=== PATIENT | male | born 1970 | race African-American/Black ===

== ENCOUNTER 2017-05-28 00:15 | Observation (INO) ==
[2017-05-28] MEDS ORDERED: ONDANSETRON 4 MG/2 ML VIAL IV STA (00:31)
[2017-05-28] MEDS ORDERED: MORPHINE 2 MG/1 ML SYRINGE IV STA (00:31)
[2017-05-28] MEDS ORDERED: hydrALAZINE 20 MG/1 ML VIAL IV STA (00:31)
[2017-05-28] MEDS ORDERED: ASPIRIN 325 MG TABLET PO STA (00:31)
[2017-05-28] MEDS ORDERED: NITROGLYCERIN 2% OINT 1 INCH/GM PACK TOP STA (00:31)
[2017-05-28] MEDS ORDERED: hydrALAZINE 20 MG/1 ML VIAL ONE (00:42)
[2017-05-28] MEDS ORDERED: ASPIRIN 325 MG TABLET ONE (00:42)
[2017-05-28] MEDS ORDERED: NITROGLYCERIN 2% OINT 1 INCH/GM PACK TOP ONE (00:42)
[2017-05-28] MEDS ORDERED: ONDANSETRON 4 MG/2 ML VIAL ONE (00:42)
[2017-05-28] MEDS ORDERED: MORPHINE 2 MG/1 ML SYRINGE ONE (00:42)
[2017-05-28 00:47] LABS: Basophils % 0.3 % (0.0-0.8); Eosinophils # 0.3 10*3/uL (0.0-0.87); Eosinophils % 5.2 % (0.00-10.9); Hematocrit 39.5 VOL% (42.0-52.0); Hemoglobin 12.8 GM/DL (14.0-18.0); Immature Granulocytes % 0.3 %; Immature Granulocytes Absolute 0.02 #; Lymphocytes # 1.9 10*3/uL (1.4-4.0); Lymphocytes % 32.4 % (21.2-54.2); Mean Corpuscular HGB Conc 32.4 GM/DL (32-36); Mean Corpuscular Hemoglobin 29 PG (27-34); Mean Corpuscular Volume 90.4 FL (87-102); Mean Platelet Volume 10.7 FL (9.6-12.0); Monocytes # 0.6 10*3/uL (0.11-0.8); Monocytes % 9.9 % (1.7-12.7); Neutrophils % 51.9 % (38.7-73.9); Platelet Count 180 T/CUMM (130-400); Red Blood Count 4.37 MC/CUMM (3.8-5.5); Red Cell Distribution Width 13.5 % (9.3-17.3); White Blood Count 5.8 T/CUMM (4-12)
--- NOTE | 2017-05-28 00:53 | Emergency Department Note ---
IAlyssia Brittany, am scribing for, and in the presence of, Arsenio Benavides MD 00:35. Kennedy Lafleur Charles R, MD, personally performed the services described in this documentation, ascribed by Michelle Cade in my presence, and it is both accurate and complete . Arrival - Arrival Chief Complaint: Chest Pain Stated Complaint: chest pains ED Nursing Triage Note: Pt to triage with c/o chest "fluttering". Pt states it started 1 hr [employer]. Pt states he does feel some tingling on his left arm. Denies any pass cardiac history. Pt BP in triage 187/120, pt states he is compliant with his meds. Mode of Arrival: Ambulatory Limitations: No Limitations Source: Patient Time Seen by Provider: 05/28/17 00:27 - History of Present Illness HPI Narrative: This is a 47 y/o black male, who presents to the ED with c/o CP which started 1 hour [employer]. He describes the CP as "fluttering around my heart." Per pt, "I'm not having chest pain but there is "fluttering around my heart." He states he normally takes his BP meds but he has been out of them. Pt has no other complaints/pain in the ED at this time. Pt has a PMhx of HTN. Pt denies a surgical Hx. Pt denies a family medical Hx. Pt denies the use of tobacco or street drugs, but notes he drinks occasionally. Onset (ago): hour(s) (Started 1 hour ago) Consistency: constant Severity: moderate Allergies/Adverse Reactions: Allergies Allergy/AdvReac Type Severity Reaction Status Date / Time No Known Allergies Allergy Verified 05/28/17 00:24 Home Medications: Home Medications Medication Instructions Recorded Confirmed Type Lisinopril/Hctz 20-25 [Prinzide 1 tablet PO DAILY 03/31/16 03/31/16 History 20-25] HYDROcodone/ACETAMIN 7.5-325 1 tablet PO Q6H PRN #20 tablet 07/04/16 Rx [[place] 7.5-325] Carvedilol [Coreg] 12.5 mg PO BID 05/28/17 05/28/17 History Cyclobenzaprine [Flexeril] 10 mg PO TID PRN 05/28/17 05/28/17 History Review of System - Review of System 12 point system: reviewed and no additional remarkable complaints except as stated - Review of System Cardiovascular: Present: chest pain Medical,Surgical,& Family Hx - Medical History Cardio: History of: Hypertension - Social History Smoking Status: Never smoker Frequency of Alcohol Use: Occasionally Type of Drug Use: None Exam Vital Signs: Vital Signs Temperature 98.5 F 05/28/17 00:20 Pulse Rate 66 05/28/17 00:20 Respiratory Rate 18 05/28/17 01:03 Blood Pressure 187/120 05/28/17 00:20 O2 Sat by Pulse Oximetry 98 05/28/17 01:03 - General General appearance: alert, in no apparent distress - Head Head exam: Present: normal inspection - Eye Eye exam: Present: PERRL, EOMI. Absent: nystagmus, miosis, mydriasis - ENT ENT exam: Present: mucous membranes moist - Neck Neck exam: Present: full ROM, trachea midline. Absent: tenderness - Chest Chest inspection: Present: symmetric chest wall rise. Absent: tenderness - Respiratory Respiratory exam: Present: rales. Absent: respiratory distress - Cardiovascular Cardiovascular exam: Present: regular rate, normal rhythm, normal heart sounds - Abdominal Exam Abdominal exam: Present: soft, normal bowel sounds. Absent: tenderness - Rectal Exam Rectal exam: Present: deferred - Extremities Exam Extremities exam: Present: normal capillary refill. Absent: tenderness, pedal edema - Back Exam Back exam: Present: full ROM. Absent: tenderness, muscle spasm, rashes - Neurological Exam Neurological exam: Present: alert, oriented X3, CN II-XII intact. Absent: motor sensory deficit - Psychiatric Psychiatric exam: Present: normal affect, normal mood. Absent: depressed, agitated, anxious, flat affect, manic - Skin Skin exam: Present: warm, dry, intact, normal color. Absent: rash, cyanosis, diaphoresis, erythema Course - Consultations Consultation #1: Hospitalist will admit patient Time: 01:30 Results - Labs CBC & BMP: 05/28/17 00:34 05/28/17 00:34 Disposition Clinical Impression: Atypical chest pain, Hypertensive urgency Case discussed with: patient, patient's family Disposition: Still a Patient Condition: Stable Time of Disposition: 01:30
[2017-05-28 01:06] LABS: PT Patient Result 10.2 SECS
[2017-05-28 01:09] LABS: Albumin 3.3 G/DL (3.4-5.0); Bilirubin,Total 0.4 MG/DL (0.2-1.0); Calcium 8.9 MG/DL (8.5-10.1); Magnesium 2.1 MG/DL (1.8-2.4); Osmolality,Calculated 276.7 MOS/KG (273-304); Potassium 3.7 MMOL/L (3.5-5.1); Total Protein 7.5 G/DL (6.4-8.3)
--- NOTE | 2017-05-28 02:42 | Hospitalist History & Physical ---
Assessment and Plan - Time spent with patient Time spent with patient: Greater than 30 minutes (1) Heart palpitations Status: Acute Assessment and plan: Admit to hospitalist services. Telemetry. Consult cardiology. Initial troponin in the ED was less than 0.015. Follow serial troponins. Initial EKG in the ED showed normal sinus rhythm. Follow serial EKGs. CT head without contrast. Obtain echo. Neuro checks every 4 hours. Strict I/Os. O2 per unit protocol. Start ASA 325 mg PO daily. BNP pending. A1c, lipid panel, magnesium, TSH, CBC, CMP in a.m. Current Visit: Yes (2) Hypertensive urgency Status: Acute Assessment and plan: BP was initially 187/120 in ED. It lowered to 140s/90s after Nitro and hydralazine. Continue home BP medications. Monitor. Current Visit: Yes (3) Anemia Status: Chronic Assessment and plan: Mild, normocytic anemia. Slightly lower than baseline. Stable; asymptomatic. Repeat CBC in a.m. Monitor. Current Visit: Yes (4) DVT prophylaxis Status: Acute Assessment and plan: Lovenox 40 mg SQ daily. Current Visit: Yes History of Present Illness Chief complaint: Palpitations; Hypertension History of present illness: Mr. Bates is a 47 year old male with a past medical history of hypertension who presented to the ED today with complaints of intermittent "chest fluttering " and a tingling sensation radiating down his left arm. He additionally complains of a substernal burning sensation he describes as feeling like heartburn. He denies prevous such episodes, shortness of breath, nausea, vomiting, dizziness and diapohresis. He reports that the fluttering sensation happens about hourly and lasts for 15-20 seconds. The last episode occurred about 10-15 minutes prior to this exam. In the ED, he was found to be hypertensive with an initial blood pressure of 187/120. He was given nitroglycerin and hydralazine and blood pressures decreased into the 140s/90s. His initial troponin was <0.015, and his EKG showed normal sinus rhythm. Currently, he is resting comfortably without additional complaints. Hospitalist services were consulted, and the patient will be admitted for further evaluation and treatment. Home medications were reviewed and reconciled. This patient is a full code. Home Medications Medication Instructions Recorded Confirmed Type Lisinopril/Hctz 20-25 [Prinzide 1 tablet PO DAILY 03/31/16 03/31/16 History 20-25] HYDROcodone/ACETAMIN 7.5-325 1 tablet PO Q6H PRN #20 tablet 07/04/16 Rx [[place] 7.5-325] Carvedilol [Coreg] 12.5 mg PO BID 05/28/17 05/28/17 History Cyclobenzaprine [Flexeril] 10 mg PO TID PRN 05/28/17 05/28/17 History Allergies Allergy/AdvReac Type Severity Reaction Status Date / Time No Known Allergies Allergy Verified 05/28/17 00:24 Medical,Surgical,& Family Hx - Medical History Cardio: History of: Hypertension - Surgical History Additional Surgical History: Surgical history discussed with patient. He denies any surgical history. - Family History Family History: Reports;: Family Cancer, Family Diabetes, Family Hypertension - Social History Smoking Status: Never smoker Have you smoked in the last 12 months: No Frequency of Alcohol Use: Occasionally Type of Drug Use: None Marital Status: Lives With:: Spouse Functional capacity: independent ambulation 12 point system: reviewed and no additional remarkable complaints except as stated - Constitutional Constitutional: Absent: chills, fever(s), headache(s), weakness - EENT Eyes: Absent: blurry vision, diplopia, loss of vision Ears: Absent: decreased hearing, ear discharge, ear pain Nose, mouth and throat: Absent: headache(s), nasal congestion, sore throat - Cardiovascular Cardiovascular: Present: palpitations, other (Tingling sensation in left arm). Absent: chest pain at rest, chest pain with activity, dyspnea, dyspnea on exertion, edema, radiating jaw, neck or arm pain, orthopnea - Respiratory Respiratory: Absent: cough, dyspnea, wheezing - Gastrointestinal Gastrointestinal: Present: heartburn. Absent: abdominal pain, constipation, diarrhea, nausea, vomiting - Genitourinary Genitourinary: Absent: dysuria, flank pain, hematuria, urinary frequency - Musculoskeletal Musculoskeletal: Absent: arthralgias, back pain, joint swelling, muscle weakness , myalgias - Neurological Neurological: Present: paresthesias (intermittent left arm tingling). Absent: confusion, dizziness, numbness - Psychiatric Psychiatric: Absent: anxiety, depression - Endocrine Endocrine: Absent: cold intolerance, heat intolerance, polydipsia, polyphagia, polyuria - Hematologic/Lymphatic Hematologic/Lymphatic: Absent: easy bleeding, easy bruising Exam - Constitutional Vitals: Period Temp Pulse Resp BP Sys/Ocasio Pulse Ox Last 24 Hr 98.5 F-98.5 F 66-66 18-18 187-187/120-120 96-98 Exam: Constitutional System: Afebrile. Awake, alert, and oriented x 3. No distress. No tremulousness. Head: Normocephalic, atraumatic. Ears, Nose and Throat System: No pain or tenderness. No epistaxis or discharge Eyes System: Pupils equal, round, and reactive. Extraocular muscles intact. Neck: Supple, without adenopathy, No jugular venous distention. No thyromegaly, neck mass, or prior surgery apparent. Respiratory System: Chest clear to auscultation. Cardiovascular System: Heart with regular rate and rhythm. No murmur. GI System: Abdomen soft, nontender. Normo active bowel sounds present. Musculoskeletal System: Limbs with no pedal edema. Full distal pulses. Normal capillary refill. Neurological System: No discernable sensory deficit. No aphasia Psychiatric System: Conversation is rational Results - Labs CBC & BMP: 05/28/17 00:34 05/28/17 00:34 Lab Results: I have reviewed the past 24 hour labs Labs: WBC 5.8 RBC 4.37 Hgb 12.8 HCT 39.5 MCV 90.4 Platelet 180 Neutrophil percent 51.9 Lymphocyte percent 32.4 INR 1.0 PT 10.2 D-dimer less than or equal to 0.5 Sodium 138 Potassium 3.7 Chloride 104 Carbon dioxide 30 Anion gap 7.7 BUN 15 Creatinine 1.3 GFR 98 BUN/creatinine ratio 11 Glucose 113 Osmolality 276.7 Calcium 8.9 Magnesium 2.1 Total bilirubin 0.4 AST 29 ALT 46 Alkaline phosphatase 82 Troponin I less than 0.015 Total protein 7.5 Albumin 3.3 Globulin 4.2 Albumin globulin ratio 0.7 Lipase 259.0
[2017-05-28] MEDS ORDERED: ACETAMINOPHEN 325 MG TABLET PO PRN ×2 (03:07→08:36)
[2017-05-28] MEDS ORDERED: CYCLOBENZAPRINE 10 MG TABLET PO PRN (03:07)
[2017-05-28] MEDS: CARVEDILOL 12.5 MG TABLET PO SCH ×2 (04:33→08:27)
[2017-05-28 05:15] LABS: Basophils % 0.4 % (0.0-0.8); Eosinophils # 0.3 10*3/uL (0.0-0.87); Eosinophils % 5.8 % (0.00-10.9); Hematocrit 38.7 VOL% (42.0-52.0); Hemoglobin 12.5 GM/DL (14.0-18.0); Immature Granulocytes % 0.6 %; Immature Granulocytes Absolute 0.03 #; Lymphocytes # 1.8 10*3/uL (1.4-4.0); Lymphocytes % 35.3 % (21.2-54.2); Mean Corpuscular HGB Conc 32.3 GM/DL (32-36); Mean Corpuscular Hemoglobin 29 PG (27-34); Mean Corpuscular Volume 89.2 FL (87-102); Mean Platelet Volume 11.5 FL (9.6-12.0); Monocytes # 0.5 10*3/uL (0.11-0.8); Monocytes % 8.7 % (1.7-12.7); Neutrophils # 2.5 10*3/uL (1.4-7.4); Neutrophils % 49.2 % (38.7-73.9); Platelet Count 181 T/CUMM (130-400); Red Blood Count 4.34 MC/CUMM (3.8-5.5); Red Cell Distribution Width 13.5 % (9.3-17.3); White Blood Count 5.2 T/CUMM (4-12)
[2017-05-28 05:44] LABS: Troponin I Only < 0.015 NG/ML (0.00-0.045)
[2017-05-28 05:47] LABS: Albumin 3.3 G/DL (3.4-5.0); Bilirubin,Total 0.9 MG/DL (0.2-1.0); Calcium 8.7 MG/DL (8.5-10.1); Osmolality,Calculated 281.5 MOS/KG (273-304); Potassium 3.5 MMOL/L (3.5-5.1); Total Protein 6.7 G/DL (6.4-8.3)
[2017-05-28 05:50] LABS: Troponin I Only < 0.015 NG/ML (0.00-0.045)
[2017-05-28 05:51] LABS: Risk Ratio 6.21; Thyroid Stimulating Hormone 1.59 uIU/ml (0.358-3.74)
--- NOTE | 2017-05-28 06:51 | XRay Report ---
XR chest 2V Indication: Chest pain Comparison: 25 August 2014 Findings: The heart and mediastinum are normal in size and configuration. The pulmonary vascularity is normal in caliber. No lung infiltrates, effusions, pneumothorax or other abnormality is demonstrated. Impression: No acute cardiopulmonary findings. PROCEDURE INTERPRETED AT [facility] DEPARTMENT OF RADIOLOGY Final Report Signed by: Dr. Hugh Pack
--- NOTE | 2017-05-28 06:54 | CT Report ---
CT brain Indication: Paresthesias Comparison: August 2014 Technique: Axial CT imaging of the brain is performed without contrast with 3 mm increments. Findings: No evidence of hemorrhage, mass mass effect midline shift or acute infarct seen. The brain parenchyma attenuation and differentiation appears within normal limits. The ventricles and cisterns are normal in caliber. Mucosal density is present in the left sphenoid sinus. No other cranial or skull base abnormality is identified. Impression: No evidence of intracranial abnormality demonstrated. Left sphenoid sinus disease. This CT exam was performed using one or more the following dose reduction techniques: Automated exposure control, adjustment of the MA and/or KV according to patient size, or use of iterative reconstruction technique. PROCEDURE INTERPRETED AT [facility] DEPARTMENT OF RADIOLOGY Final Report Signed by: Dr. Hugh Pack
[2017-05-28] MEDS ORDERED: LISINOPRIL/HCTZ 20-25 MG TABLET PO SCH (09:00)
[2017-05-28] MEDS ORDERED: PANTOPRAZOLE 40 MG TABLET PO SCH (09:00)
[2017-05-28] MEDS ORDERED: ENOXAPARIN 40 MG/0.4 ML SYRINGE SUBCUT SCH (09:00)
[2017-05-28] MEDS ORDERED: ASPIRIN 325 MG TABLET PO SCH (09:00)
[2017-05-28] MEDS ORDERED: CARVEDILOL 25 MG TABLET PO SCH (09:27)
[2017-05-28] MEDS ORDERED: CARVEDILOL 12.5 MG TABLET PO ONE (09:30)
[2017-05-28] MEDS ORDERED: POTASSIUM CHLORIDE 20 MEQ TABLET PO PRN (09:32)
--- NOTE | 2017-05-28 09:33 | Cardiology Consult Note ---
Assessment and Plan - Time spent with patient Time spent with patient: Greater than 30 minutes (1) Heart palpitations Status: Acute Assessment and plan: SEE PLAN OF CARE LISTED BELOW. Current Visit: Yes (2) Hypertriglyceridemia Status: Acute Assessment and plan: SEE PLAN OF CARE LISTED BELOW. Current Visit: Yes (3) Hypertensive urgency Status: Acute Assessment and plan: SEE PLAN OF CARE LISTED BELOW. Current Visit: Yes (4) Anemia Status: Acute Assessment and plan: SEE PLAN OF CARE LISTED BELOW. Current Visit: Yes (5) Hyperglycemia Status: Acute Assessment and plan: SEE PLAN OF CARE LISTED BELOW. 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 Mason Mays Mr. Bates is a 47 year old male without known history of coronary artery disease, not routinely followed by cardiology. Cardiac risk factors include: Uncontrolled hypertension, former smoker (quit 3 years ago) and obesity. Denies any significant family history of CAD. Patient has never been seen by client service coordinator. Denies previous heart catheterization and stress test. Patient presented to [facility] early this morning with complaints of heart fluttering. Reports that he was lying down when this began. It occurred intermittently lasting approximately 15 seconds and recurring every 1 hour. Patient denies any associated chest pain, heaviness or tightness. Also denies any associated shortness of breath, nausea, diaphoresis and lightheadedness. He did report that he he began experiencing numbness/ tingling down his left arm. He reports he has had heart palpitations in the past however he has never had the tingling in the left arm. This became concerning to him and he felt he should be further evaluated in the emergency department. He remains quite active. He reports that he can perform his usual strenuous activities without expecting chest pain, heaviness or tightness. Denies change in his exercise tolerance as well as dyspnea on exertion. He is able to walk several miles without experiencing chest pain, heaviness or tightness. He denies previous history of atrial fibrillation. Denies previous workup of heart fluttering/palpitations. Denies syncope or presyncope. No associated fever, chills, cough, nausea, vomiting, abdominal pain, PND, orthopnea or lower extremity swelling. Patient has been admitted to hospital medicine's service. Housed on the telemetry unit. Cardiology has been consulted to further assist with patient's palpitations. Patient was seen and examined on the telemetry unit. He is currently without complaints of heart fluttering. Chest x-ray stable. Negative d-dimer. BNP 47. Potassium 3.5. I have added potassium replacement protocol. No evidence to suggest ACS. Cardiac biomarkers negative 3. EKG reveals nonspecific T- wave abnormality. No evidence of overt arrhythmia, PVCs or PACs per university dean. We will continue to monitor this. Optimize electrolytes. I have increased patient's beta-blockade. Thyroid studies within normal limits. Patient will most likely benefit from event monitor at discharge. Continue aspirin for further risk stratification. Echocardiogram pending. I will further discuss with Dr. Hoskins and await his additional recommendations. IMPRESSION AND PLAN: 1. HEART PALPITATIONS - No evidence to suggest ACS. Cardiac biomarkers negative 3. EKG reveals nonspecific T-wave abnormality. No evidence of overt arrhythmia per university dean. We will continue to monitor this. Optimize electrolytes. I have increased patient's beta-blockade. Thyroid studies within normal limits. Patient will most likely benefit from event monitor at discharge. Continue aspirin for further risk stratification. Echocardiogram pending. I will further discuss with Dr. Hoskins and await his additional recommendations. 2. HYPERTENSIVE URGENCY - I have increased patient's beta-blockade dose as this will also hopefully improve patient's heart palpitations. Will continue to monitor blood pressure and adjust medications accordingly. 3. ANEMIA - Chronicity of this is unknown. Defer workup to attending. No overt bleeding. 4. HYPERTRIGLYCERIDEMIA - I have initiated facial. 5. HYPERGLYCEMIA - Borderline diabetic with hemoglobin A1c 6.3. Patient may benefit from initiation of metformin. I would defer management of this to attending. CC: Manju Hopkins MD - Home Medications and Allergies Home Medications: Home Medications Medication Instructions Recorded Confirmed Type Lisinopril/Hctz 20-25 [Prinzide 1 tablet PO DAILY 03/31/16 05/28/17 History 20-25] Carvedilol [Coreg] 12.5 mg PO BID 05/28/17 05/28/17 History Cyclobenzaprine [Flexeril] 10 mg PO TID PRN 05/28/17 05/28/17 History Allergies/Adverse Reactions: Allergies Allergy/AdvReac Type Severity Reaction Status Date / Time No Known Allergies Allergy Verified 05/28/17 00:24 - Constitutional Constitutional: Present: as per HPI, fatigue, headache(s). Absent: chills, fever(s), frequent falls, lethargy, malaise, weakness, weight gain, weight loss - Cardiovascular Cardiovascular: Present: as per HPI, radiating jaw, neck or arm pain, palpitations. Absent: chest pain at rest, chest pain with activity, claudication, diaphoresis, dyspnea, dyspnea on exertion, edema, lightheadedness , orthopnea, PND - Respiratory Respiratory: Present: as per HPI. Absent: cough, dyspnea, hemoptysis, dyspnea on exertion, wheezing, snoring, pain on inspiration, change in phlegm color - Gastrointestinal Gastrointestinal: Present: as per HPI. Absent: abdominal pain, change in bowel habits, coffee ground emesis, heartburn, hematemesis, hematochezia, melena, nausea, vomiting - Neurological Neurological: Present: as per HPI, headache(s). Absent: abnormal gait, abnormal speech, behavioral changes, dizziness, focal weakness, frequent falls, syncope - Psychiatric Psychiatric: Present: as per HPI. Absent: anxiety, depression, panic attacks - Hematologic/Lymphatic Hematologic/Lymphatic: Present: as per HPI. Absent: easy bleeding, easy bruising Medical,Surgical,& Family Hx - Medical History Cardio: History of: Hypertension - Family History Family History: Reports;: Family Cancer, Family Diabetes, Family Hypertension - Social History Smoking Status: Former smoker Frequency of Alcohol Use: Occasionally Type of Drug Use: None Marital Status: Single Lives With:: Spouse Functional capacity: independent ambulation Physical Examination Vital Signs Temp Pulse Resp BP Pulse Ox 98.5 F 66 18 187/120 96 05/28/17 00:20 05/28/17 00:20 05/28/17 00:20 05/28/17 00:20 05/28/17 00:20 Exam: General: Appears well with no apparent distress. Pleasant and cooperative. Appears comfortable. HEENT: PERRL, normocephalic, atraumatic. Mucous membranes moist. No jaundice noted. Conjunctiva moist and clear, sclerae anicteric Neck: No JVD/HJR, no thyromegaly or lymphadenopathy noted. No carotid bruit appreciated Cardiac: Regular rate and rhythm. No murmur rub or gallop. Lungs: Clear to auscultation without accessory muscle use to assist the respiratory pattern. Not requiring oxygen. Abdomen: Soft, bowel sounds normoactive. Nontender and nondistended. No abdominal bruit or thrill noted. No masses noted. Extremities: No clubbing, cyanosis noted. No edema noted. Upper extremity pulses 2+. Lower extremity pulses 2+. Capillary refill less than 3 seconds. Skin: No unusual lesions or rashes. No skin breakdown appreciated. Neuro: Awake, alert and oriented 3. Moves all extremities well without hemiparesis or paralysis. No essential tremor is appreciated. Result/EKG - Labs CBC & BMP: 05/28/17 04:32 05/28/17 04:31 Lab Results: I have reviewed the past 24 hour labs Labs: Laboratory Results - last 24 hr 05/28/17 05/28/17 05/28/17 00:34 00:34 00:34 WBC RBC Hgb Hct MCV MCH MCHC RDW Plt Count MPV Neut % (Auto) Lymph % (Auto) Parmer % (Auto) Eos % (Auto) Baso % (Auto) Neut # (Auto) Lymph # (Auto) Parmer # (Auto) Eos # (Auto) Baso # (Auto) Immature Gran % Nucleated RBC % Immature Gran # Nucleated RBCs # Immature Plt Fraction INR 1.0 PT Patient/Control Mix 10.2 D-Dimer, Quantitative <= 0.5 Sodium 138 Potassium 3.7 Chloride 104 Carbon Dioxide 30 Anion Gap 7.7 BUN 15 Creatinine 1.30 GFR Calculation 98 BUN/Creatinine Ratio 11.00 Glucose 113 H Hemoglobin A1c Calculated Osmolality 276.7 Calcium 8.9 Magnesium 2.1 Total Bilirubin 0.40 AST 29 ALT 46 Alkaline Phosphatase 82 Total Creatine Kinase CK-MB (CK-2) Troponin I B-Natriuretic Peptide 47 Total Protein 7.5 Albumin 3.3 L Globulin 4.2 H Albumin/Globulin Ratio 0.7 L Triglycerides Cholesterol LDL Cholesterol VLDL Cholesterol HDL Cholesterol Heart Disease Risk Ratio Lipase 259.0 TSH 3rd Generation 05/28/17 05/28/17 05/28/17 00:34 00:34 04:31 WBC 5.8 RBC 4.37 Hgb 12.8 L Hct 39.5 L MCV 90.4 MCH 29 MCHC 32.4 RDW 13.5 Plt Count 180 MPV 10.7 Neut % (Auto) 51.9 Lymph % (Auto) 32.4 Parmer % (Auto) 9.9 Eos % (Auto) 5.2 Baso % (Auto) 0.3 Neut # (Auto) 3.0 Lymph # (Auto) 1.9 Parmer # (Auto) 0.6 Eos # (Auto) 0.3 Baso # (Auto) 0.0 Immature Gran % 0.3 Nucleated RBC % 0.0 Immature Gran # 0.02 Nucleated RBCs # 0.00 Immature Plt Fraction 0.0 INR PT Patient/Control Mix D-Dimer, Quantitative Sodium Potassium Chloride Carbon Dioxide Anion Gap BUN Creatinine GFR Calculation BUN/Creatinine Ratio Glucose Hemoglobin A1c Calculated Osmolality Calcium Magnesium 2.0 Total Bilirubin AST ALT Alkaline Phosphatase Total Creatine Kinase CK-MB (CK-2) Troponin I < 0.015 B-Natriuretic Peptide Total Protein Albumin Globulin Albumin/Globulin Ratio Triglycerides 690 H Cholesterol 174 LDL Cholesterol 53.0 VLDL Cholesterol 138.0 HDL Cholesterol 28 L Heart Disease Risk Ratio 6.21 Lipase TSH 3rd Generation 1.590 05/28/17 05/28/17 05/28/17 04:31 04:31 04:31 WBC RBC Hgb Hct MCV MCH MCHC RDW Plt Count MPV Neut % (Auto) Lymph % (Auto) Parmer % (Auto) Eos % (Auto) Baso % (Auto) Neut # (Auto) Lymph # (Auto) Parmer # (Auto) Eos # (Auto) Baso # (Auto) Immature Gran % Nucleated RBC % Immature Gran # Nucleated RBCs # Immature Plt Fraction INR PT Patient/Control Mix D-Dimer, Quantitative Sodium 139 Potassium 3.5 Chloride 103 Carbon Dioxide 29 Anion Gap 10.5 BUN 14 Creatinine 1.30 GFR Calculation 93 BUN/Creatinine Ratio 10.00 Glucose 178 H Hemoglobin A1c 6.3 Calculated Osmolality 281.5 Calcium 8.7 Magnesium Total Bilirubin 0.90 AST 28 ALT 45 Alkaline Phosphatase 79 Total Creatine Kinase 297 CK-MB (CK-2) 1.9 Troponin I < 0.015 B-Natriuretic Peptide Total Protein 6.7 Albumin 3.3 L Globulin 3.4 Albumin/Globulin Ratio 0.9 L Triglycerides Cholesterol LDL Cholesterol VLDL Cholesterol HDL Cholesterol Heart Disease Risk Ratio Lipase TSH 3rd Generation 05/28/17 05/28/17 05/28/17 04:32 04:32 08:01 WBC 5.2 RBC 4.34 Hgb 12.5 L Hct 38.7 L MCV 89.2 MCH 29 MCHC 32.3 RDW 13.5 Plt Count 181 MPV 11.5 Neut % (Auto) 49.2 Lymph % (Auto) 35.3 Parmer % (Auto) 8.7 Eos % (Auto) 5.8 Baso % (Auto) 0.4 Neut # (Auto) 2.5 Lymph # (Auto) 1.8 Parmer # (Auto) 0.5 Eos # (Auto) 0.3 Baso # (Auto) 0.0 Immature Gran % 0.6 Nucleated RBC % 0.0 Immature Gran # 0.03 Nucleated RBCs # 0.00 Immature Plt Fraction 0.0 INR PT Patient/Control Mix D-Dimer, Quantitative Sodium Potassium Chloride Carbon Dioxide Anion Gap BUN Creatinine GFR Calculation BUN/Creatinine Ratio Glucose Hemoglobin A1c Calculated Osmolality Calcium Magnesium Total Bilirubin AST ALT Alkaline Phosphatase Total Creatine Kinase 295 CK-MB (CK-2) 1.8 Troponin I < 0.015 < 0.015 B-Natriuretic Peptide Total Protein Albumin Globulin Albumin/Globulin Ratio Triglycerides Cholesterol LDL Cholesterol VLDL Cholesterol HDL Cholesterol Heart Disease Risk Ratio Lipase TSH 3rd Generation
--- NOTE | 2017-05-28 10:37 | DUMMY REPORT TO COMPLETE ORDER ---
See report scanned to EMR
--- NOTE | 2017-05-28 11:15 | Discharge Summary ---
Hospital Course - Hospital Course Hospital Course: MR Bates came to ER yesterday when he had palpitations in his chest that he had never had before. He ruled out for NH. He was seen by DR Hoskins who has a low suspicion for CAD. He will see him in clinic after a 30day event monitor and also referred him to DR Stacy for eval of sleep apnea. He will stay on his regular antiHTN meds and aspirin but his coreg has been increased. He was advised to lose weight. His echo shows normal EF and diastolic function, mild LVH, borderline pulmonary HTN, and biatrial enlargement. His HGB A1C is 6.3. He has prediabetes and was counselled to focus on weight control at this time with his PCP and to consider the addition of metformin if it does not normalize with weight loss. He will see his PCP in clinic in about a week. - Time spent with patient Time with patient DS: Greater than 30 minutes (35 minutes were required for medicine reconciliation, discharge coordination and planning and documentation) Diagnosis - Discharge Diagnosis (1) Pre-diabetes Status: Chronic (2) Hypertensive urgency Status: Resolved (3) Heart palpitations Status: Resolved (4) Hypertriglyceridemia Status: Chronic (5) Morbid obesity Status: Chronic Specialty Discharge - Follow Up or Referrals Follow up with: your, PCP [Other] - 1 Week Sebastian Hoskins MD [Physician] - 07/15/17 12:50 pm (6 weeks ) Erika Stacy MD [Physician] - 06/09/17 2:00 pm ([facility] workup -Paperwork being mailed to the address listed. Pt needs to fill out and bring to appt on the ) - Speciality Discharge Instructions Cardiology Instructions: 30 day event recorder Discharge Plan - Discharge Data Disposition: Disch To Home/Self Care Condition at Discharge: Stable Discharge Diet: heart healthy Activity: resume usual activities as tolerated - Discharge Medications New Aspirin Tab 325 mg PO DAILY #0 tablet Union 3 Acid Ethyl Esters [Lovaza] 2 gm PO BEDTIME #0 capsule Carvedilol [Coreg] 25 mg PO BID #60 tablet Continue Lisinopril/Hctz 20-25 [Prinzide 20-25] 1 tablet PO DAILY Cyclobenzaprine [Flexeril] 10 mg PO TID PRN PRN Reason: Pain Discontinued Carvedilol [Coreg] 12.5 mg PO BID - Follow Up or Referral Follow Up: your, PCP [Other] - 1 Week Sebastian Hoskins MD [Physician] - 07/15/17 12:50 pm (6 weeks ) Erika Stacy MD [Physician] - 06/09/17 2:00 pm ([facility] workup -Paperwork being mailed to the address listed. Pt needs to fill out and bring to appt on the ) - Forms/Instructions Instructions: Aspirin (By mouth), Carvedilol (By mouth), [id number] Ethyl Esters (By mouth), Heart Healthy Diet (DC), Hypertension (DC) Exam - Constitutional Vitals: Period Temp Pulse Resp BP Sys/Ocasio Pulse Ox Last 24 Hr 98.1 F-98.5 F 66-75 18-20 153-187/79-120 95-98 General appearance: no acute distress, morbidly obese - Eye Eye exam: Present: EOMI. Absent: scleral icterus - Respiratory Respiratory exam: Present: clear to auscultation bilaterally - Cardiovascular Cardiovascular exam: Present: regular rate and rhythm - GI/Abdominal GI/Abdominal exam: Present: normal bowel sounds, soft - Extremities Exam Extremities exam: Absent: edema Discharge Results Procedures and tests throughout hospitalization: Pending Orders 05/28/17 03:07 UDS [Drug Screen, Urine] Routine Urinalysis Routine 05/29/17 04:00 BMP w/ Mg [Basic Metabolic Panel w/Mg] IN AM CBC [Comp Blood Count Auto Diff] IN AM 05/30/17 04:00 BMP w/ Mg [Basic Metabolic Panel w/Mg] IN AM CBC [Comp Blood Count Auto Diff] IN AM 05/31/17 04:00 BMP w/ Mg [Basic Metabolic Panel w/Mg] IN AM CBC [Comp Blood Count Auto Diff] IN AM 06/01/17 04:00 BMP w/ Mg [Basic Metabolic Panel w/Mg] IN AM CBC [Comp Blood Count Auto Diff] IN AM 06/02/17 04:00 BMP w/ Mg [Basic Metabolic Panel w/Mg] IN AM CBC [Comp Blood Count Auto Diff] IN AM Labs on day of discharge: Labs from last 24 hours 05/28/17 05/28/17 05/28/17 08:01 04:32 04:32 WBC 5.2 RBC 4.34 Hgb 12.5 L Hct 38.7 L MCV 89.2 MCH 29 MCHC 32.3 RDW 13.5 Plt Count 181 MPV 11.5 Neut % (Auto) 49.2 Lymph % (Auto) 35.3 [place] % (Auto) 8.7 Eos % (Auto) 5.8 Baso % (Auto) 0.4 Neut # (Auto) 2.5 Lymph # (Auto) 1.8 [place] # (Auto) 0.5 Eos # (Auto) 0.3 Baso # (Auto) 0.0 Immature Gran % 0.6 Nucleated RBC % 0.0 Immature Gran # 0.03 Nucleated RBCs # 0.00 Immature Plt Fraction 0.0 INR PT Patient/Control Mix D-Dimer, Quantitative Sodium Potassium Chloride Carbon Dioxide Anion Gap BUN Creatinine GFR Calculation BUN/Creatinine Ratio Glucose Hemoglobin A1c Calculated Osmolality Calcium Magnesium Total Bilirubin AST ALT Alkaline Phosphatase Total Creatine Kinase 295 CK-MB (CK-2) 1.8 Troponin I < 0.015 < 0.015 B-Natriuretic Peptide Total Protein Albumin Globulin Albumin/Globulin Ratio Triglycerides Cholesterol LDL Cholesterol VLDL Cholesterol HDL Cholesterol Heart Disease Risk Ratio Lipase TSH 3rd Generation 05/28/17 05/28/17 05/28/17 04:31 04:31 04:31 WBC RBC Hgb Hct MCV MCH MCHC RDW Plt Count MPV Neut % (Auto) Lymph % (Auto) [place] % (Auto) Eos % (Auto) Baso % (Auto) Neut # (Auto) Lymph # (Auto) [place] # (Auto) Eos # (Auto) Baso # (Auto) Immature Gran % Nucleated RBC % Immature Gran # Nucleated RBCs # Immature Plt Fraction INR PT Patient/Control Mix D-Dimer, Quantitative Sodium 139 Potassium 3.5 Chloride 103 Carbon Dioxide 29 Anion Gap 10.5 BUN 14 Creatinine 1.30 GFR Calculation 93 BUN/Creatinine Ratio 10.00 Glucose 178 H Hemoglobin A1c 6.3 Calculated Osmolality 281.5 Calcium 8.7 Magnesium Total Bilirubin 0.90 AST 28 ALT 45 Alkaline Phosphatase 79 Total Creatine Kinase 297 CK-MB (CK-2) 1.9 Troponin I < 0.015 B-Natriuretic Peptide Total Protein 6.7 Albumin 3.3 L Globulin 3.4 Albumin/Globulin Ratio 0.9 L Triglycerides Cholesterol LDL Cholesterol VLDL Cholesterol HDL Cholesterol Heart Disease Risk Ratio Lipase TSH 3rd Generation 05/28/17 05/28/17 05/28/17 04:31 00:34 00:34 WBC 5.8 RBC 4.37 Hgb 12.8 L Hct 39.5 L MCV 90.4 MCH 29 MCHC 32.4 RDW 13.5 Plt Count 180 MPV 10.7 Neut % (Auto) 51.9 Lymph % (Auto) 32.4 [place] % (Auto) 9.9 Eos % (Auto) 5.2 Baso % (Auto) 0.3 Neut # (Auto) 3.0 Lymph # (Auto) 1.9 [place] # (Auto) 0.6 Eos # (Auto) 0.3 Baso # (Auto) 0.0 Immature Gran % 0.3 Nucleated RBC % 0.0 Immature Gran # 0.02 Nucleated RBCs # 0.00 Immature Plt Fraction 0.0 INR PT Patient/Control Mix D-Dimer, Quantitative Sodium Potassium Chloride Carbon Dioxide Anion Gap BUN Creatinine GFR Calculation BUN/Creatinine Ratio Glucose Hemoglobin A1c Calculated Osmolality Calcium Magnesium 2.0 Total Bilirubin AST ALT Alkaline Phosphatase Total Creatine Kinase CK-MB (CK-2) Troponin I < 0.015 B-Natriuretic Peptide Total Protein Albumin Globulin Albumin/Globulin Ratio Triglycerides 690 H Cholesterol 174 LDL Cholesterol 53.0 VLDL Cholesterol 138.0 HDL Cholesterol 28 L Heart Disease Risk Ratio 6.21 Lipase TSH 3rd Generation 1.590 05/28/17 05/28/17 05/28/17 00:34 00:34 00:34 WBC RBC Hgb Hct MCV MCH MCHC RDW Plt Count MPV Neut % (Auto) Lymph % (Auto) [place] % (Auto) Eos % (Auto) Baso % (Auto) Neut # (Auto) Lymph # (Auto) [place] # (Auto) Eos # (Auto) Baso # (Auto) Immature Gran % Nucleated RBC % Immature Gran # Nucleated RBCs # Immature Plt Fraction INR 1.0 PT Patient/Control Mix 10.2 D-Dimer, Quantitative <= 0.5 Sodium 138 Potassium 3.7 Chloride 104 Carbon Dioxide 30 Anion Gap 7.7 BUN 15 Creatinine 1.30 GFR Calculation 98 BUN/Creatinine Ratio 11.00 Glucose 113 H Hemoglobin A1c Calculated Osmolality 276.7 Calcium 8.9 Magnesium 2.1 Total Bilirubin 0.40 AST 29 ALT 46 Alkaline Phosphatase 82 Total Creatine Kinase CK-MB (CK-2) Troponin I B-Natriuretic Peptide 47 Total Protein 7.5 Albumin 3.3 L Globulin 4.2 H Albumin/Globulin Ratio 0.7 L Triglycerides Cholesterol LDL Cholesterol VLDL Cholesterol HDL Cholesterol Heart Disease Risk Ratio Lipase 259.0 TSH 3rd Generation DS: Provider Date of admission: 05/28/17 02:18 Primary care physician: . No PCP Attending physician on admission: Kat Medeiros MD Consults: 05/28/17 03:07 Consult to Physician [CONS] Routine Comment: chest discomfort Consulting Provider: Cardiology - [facility] Consulting Provider Notified: No When should Consulting Provider be notified: In am Consult to Specialist Group: Cardiology When should Consulting Provider be notified: In am Person Notified: Lana Date Notified: 05/28/17 Time Notified: 07:40 Discharging clinician: Manju Hopkins MD
[2017-05-28 11:56] VITALS: BP 145/105
--- NOTE | 2017-05-28 20:20 | DUMMY REPORT TO COMPLETE ORDER ---
See report scanned to EMR
--- NOTE | 2017-05-28 20:20 | DUMMY REPORT TO COMPLETE ORDER ---
See report scanned to EMR
--- NOTE | 2017-05-28 20:20 | DUMMY REPORT TO COMPLETE ORDER ---
See report scanned to EMR
[2017-05-28] MEDS ORDERED: OMEGA 3 ACID ETHYL ESTERS 1 GM CAPSULE PO SCH (21:00)
== END 2017-05-28 13:08 | disposition home or self-care (01) ==
LOC: N.TELES 00:15 → N.ED 00:15 → SUATTDRO 02:18 → N.TELES 03:45
PROVIDERS: ADMIT Internal Medicine; ATTEND Internal Medicine

== ENCOUNTER 2020-01-31 09:28 | Inpatient (IN) ==
[2020-01-31] MEDS ORDERED: FUROSEMIDE 40 MG/4 ML VIAL IV STA (10:01)
[2020-01-31] MEDS ORDERED: methylPREDNISolone SOD SUC 125 MG/2 ML VIAL IV STA (10:01)
[2020-01-31] MEDS ORDERED: ALBUTEROL/IPRATROPIUM 3 ML NEB RESP TX STA (10:01)
[2020-01-31] MEDS ORDERED: ONDANSETRON 4 MG/2 ML VIAL IV STA (10:01)
[2020-01-31] MEDS ORDERED: NITROGLYCERIN 2% OINT 1 INCH/GM PACK TOP STA (10:01)
[2020-01-31 10:13] LABS: Eosinophils # 0.1 10*3/uL (0.0-0.87); Eosinophils % 1.4 % (0.00-10.9); Hematocrit 34.5 VOL% (42.0-52.0); Immature Granulocytes % 0.4 %; Immature Granulocytes Absolute 0.02 #; Lymphocytes % 19.3 % (21.2-54.2); Mean Corpuscular HGB Conc 31.9 GM/DL (32-36); Mean Corpuscular Volume 86.3 FL (87-102); Mean Platelet Volume 10.8 FL (9.6-12.0); Monocytes % 6.9 % (1.7-12.7); Platelet Count 183 T/CUMM (130-400); Red Cell Distribution Width 13.7 % (9.3-17.3); White Blood Count 5.1 T/CUMM (4-12)
[2020-01-31 10:28] LABS: PT Patient Result 10.9 SECS (9.8-11.9)
[2020-01-31 10:33] LABS: Albumin 3.1 G/DL (3.4-5.0); Bilirubin,Total 0.8 MG/DL (0.2-1.0); Calcium 7.8 MG/DL (8.5-10.1); Osmolality,Calculated 263.9 MOS/KG (273-304)
[2020-01-31 11:44] LABS: Apearance,Urine CLEAR (Clear); Bilirubin,Urine Negative (Negative); Blood, Urine Negative (Negative); Glucose,Urine (UA) Negative (Negative); Ketones,Urine Negative (Negative); Mucus,Urine Occasional /LPF (Occasional); Nitrite,Urine Negative (Negative); Protein,Urine Negative; RBC,Urine 1 /HPF (0-4); Urine Color Straw (Yellow); Urine Specific Gravity 1.004 (1.001-1.035); Urine Urobilinogen < 2.0 EU/DL (0.2-1.0); WBC,Urine <1 /HPF (0-6)
[2020-01-31 11:47] LABS: Barbiturates Screen,Urine Negative (Negative); Benzodiazepines Screen,Urine Negative (Negative); Cannabinoid Screen,Urine Negative (Negative); Opiate Screen,Urine Negative (Negative); Phencyclidine Screen,Urine Negative (Negative)
[2020-01-31 12:48] LABS: Folate 16.7 NG/ML (5.4-24.0); Vitamin B12 604 PG/ML (211-911)
[2020-01-31] MEDS ORDERED: DEXTROSE 50% 25 GM/50 ML VIAL IV PRN ×2 (12:49)
[2020-01-31] MEDS ORDERED: DOCUSATE SODIUM 100 MG CAPSULE PO PRN (12:49)
[2020-01-31] MEDS ORDERED: GLUCAGON 1 MG VIAL IM PRN (12:49)
[2020-01-31] MEDS ORDERED: hydrALAZINE 20 MG/1 ML VIAL IV PRN (12:49)
[2020-01-31] MEDS ORDERED: diphenhydrAMINE CAP 25 MG CAPSULE PO PRN (12:49)
[2020-01-31] MEDS ORDERED: ONDANSETRON 4 MG/2 ML VIAL IV PRN (12:49)
[2020-01-31] MEDS ORDERED: LACTULOSE 20 GM/30 ML UDCUP PO PRN (12:49)
[2020-01-31] MEDS ORDERED: ALUMINUM/MAGNES/SIMETH MAX STR 30 ML UDCUP PO PRN (12:49)
[2020-01-31 13:14] LABS: Eosinophils % 0.7 % (0.00-10.9); Hematocrit 34.9 VOL% (42.0-52.0); Immature Granulocytes % 0.2 %; Immature Granulocytes Absolute 0.01 #; Lymphocytes # 0.7 10*3/uL (1.4-4.0); Lymphocytes % 12.9 % (21.2-54.2); Mean Corpuscular HGB Conc 31.5 GM/DL (32-36); Monocytes % 3.9 % (1.7-12.7); Neutrophils % 82.3 % (38.7-73.9); Platelet Count 196 T/CUMM (130-400); Red Blood Count 4.06 MC/CUMM (3.8-5.5); Red Cell Distribution Width 13.7 % (9.3-17.3); White Blood Count 5.4 T/CUMM (4-12)
[2020-01-31 15:09] LABS: Sedimentation Rate-Westergren 67 MM/HR (0-15)
[2020-01-31] MEDS: ENOXAPARIN 40 MG/0.4 ML SYRINGE SUBCUT SCH (15:23)
[2020-01-31] MEDS: SODIUM CHLORIDE 0.9% 1,000 ML IV SCH (15:24)
[2020-01-31] MEDS: INSULIN LISPRO 100 UNIT/ML SUBCUT SCH ×2 (15:56→22:17)
[2020-01-31] MEDS: carvediloL 12.5 MG TABLET PO SCH (22:17)
[2020-02-01 03:11] LABS: Hematocrit 34.2 VOL% (42.0-52.0); Immature Granulocytes % 0.4 %; Immature Granulocytes Absolute 0.02 #; Lymphocytes # 0.7 10*3/uL (1.4-4.0); Lymphocytes % 13.2 % (21.2-54.2); Mean Corpuscular HGB Conc 32.2 GM/DL (32-36); Mean Corpuscular Volume 86.6 FL (87-102); Mean Platelet Volume 10.7 FL (9.6-12.0); Monocytes % 8.4 % (1.7-12.7); Platelet Count 189 T/CUMM (130-400); Red Blood Count 3.95 MC/CUMM (3.8-5.5); Red Cell Distribution Width 13.5 % (9.3-17.3); White Blood Count 5.6 T/CUMM (4-12)
[2020-02-01 03:32] LABS: Calcium 8.3 MG/DL (8.5-10.1); Osmolality,Calculated 268.5 MOS/KG (273-304)
[2020-02-01] MEDS: INSULIN LISPRO 100 UNIT/ML SUBCUT SCH ×3 (08:02→17:20)
[2020-02-01] MEDS: carvediloL 12.5 MG TABLET PO SCH ×2 (08:47→20:37)
[2020-02-01] MEDS: SODIUM CHLORIDE 0.9% 1,000 ML IV SCH (08:47)
[2020-02-01] MEDS: amLODIPine 5 MG TABLET PO SCH (08:47)
[2020-02-01] MEDS ORDERED: PANTOPRAZOLE 40 MG TABLET PO SCH (09:00)
[2020-02-01 09:11] LABS: Hemoglobin A1 (Alkaline) 97.6 % (96.5-98.5); Hemoglobin A2 (Alkaline) 2.4 % (1.5-3.5)
[2020-02-01] MEDS: ACETAMINOPHEN 325 MG TABLET PO PRN ×2 (12:54→17:20)
[2020-02-01] MEDS: ENOXAPARIN 40 MG/0.4 ML SYRINGE SUBCUT SCH (12:55)
[2020-02-01] MEDS: cefTRIAXone 1,000 MG in SYRINGE 1 EACH IV SCH (12:56)
[2020-02-01] MEDS ORDERED: ACETAMINOPHEN 325 MG TABLET PO ONE (18:29)
[2020-02-01] MEDS ORDERED: KETOROLAC 30 MG/1 ML VIAL IV ONE (20:00)
[2020-02-02] MEDS: ACETAMINOPHEN 500 MG TABLET PO PRN ×4 (00:09→22:00)
[2020-02-02] MEDS: INSULIN LISPRO 100 UNIT/ML SUBCUT SCH ×5 (00:11→20:40)
[2020-02-02 05:38] LABS: Basophils % 0.1 % (0.0-0.8); Eosinophils % 0.3 % (0.00-10.9); Hematocrit 35.8 VOL% (42.0-52.0); Hemoglobin 10.9 GM/DL (14.0-18.0); Immature Granulocytes % 0.9 %; Immature Granulocytes Absolute 0.08 #; Lymphocytes # 0.9 10*3/uL (1.4-4.0); Lymphocytes % 9.6 % (21.2-54.2); Mean Corpuscular HGB Conc 30.4 GM/DL (32-36); Mean Corpuscular Volume 88.6 FL (87-102); Mean Platelet Volume 10.8 FL (9.6-12.0); Monocytes % 3.3 % (1.7-12.7); Neutrophils % 85.8 % (38.7-73.9); Platelet Count 218 T/CUMM (130-400); Red Blood Count 4.04 MC/CUMM (3.8-5.5); Red Cell Distribution Width 13.7 % (9.3-17.3)
[2020-02-02 06:03] LABS: Calcium 8.3 MG/DL (8.5-10.1); Ferritin 325.4 ng/ml (26-388); Osmolality,Calculated 267.5 MOS/KG (273-304)
[2020-02-02] MEDS ORDERED: AZITHROMYCIN INJ 500 MG in SODIUM CHLORIDE 0.9% 250 ML IV SCH (08:30)
[2020-02-02] MEDS: carvediloL 12.5 MG TABLET PO SCH ×2 (08:35→20:40)
[2020-02-02] MEDS: amLODIPine 5 MG TABLET PO SCH (08:35)
[2020-02-02] MEDS: ENOXAPARIN 40 MG/0.4 ML SYRINGE SUBCUT SCH (09:54)
[2020-02-02] MEDS: cefTRIAXone 1,000 MG in SYRINGE 1 EACH IV SCH (09:55)
[2020-02-02] MEDS: AZITHROMYCIN 250 MG TABLET PO SCH (09:55)
[2020-02-02] MEDS ORDERED: IBUPROFEN 400 MG TABLET PO PRN (10:42)
[2020-02-03] MEDS: ZALEPLON 5 MG CAPSULE PO PRN (02:53)
[2020-02-03] MEDS: ACETAMINOPHEN 500 MG TABLET PO PRN ×4 (04:00→21:28)
[2020-02-03 05:00] LABS: Basophils % 0.1 % (0.0-0.8); Eosinophils % 0.5 % (0.00-10.9); Hematocrit 34.8 VOL% (42.0-52.0); Hemoglobin 10.8 GM/DL (14.0-18.0); Immature Granulocytes % 0.6 %; Immature Granulocytes Absolute 0.05 #; Lymphocytes # 0.9 10*3/uL (1.4-4.0); Lymphocytes % 11.2 % (21.2-54.2); Mean Corpuscular Volume 86.4 FL (87-102); Mean Platelet Volume 10.4 FL (9.6-12.0); Neutrophils % 83.6 % (38.7-73.9); Platelet Count 231 T/CUMM (130-400); Red Blood Count 4.03 MC/CUMM (3.8-5.5); Red Cell Distribution Width 13.8 % (9.3-17.3); White Blood Count 7.8 T/CUMM (4-12)
[2020-02-03 05:33] LABS: Ferritin 409.5 ng/ml (26-388)
[2020-02-03 05:46] LABS: Band Neutrophils 1 % (0-10); Eosinophils 1 % (0-10); Lymphocytes 17 % (20-55); Segmented Neutrophils 79 % (50-85); Total Cells Counted 100
[2020-02-03 05:47] LABS: Hypochromasia 1+; Microcytosis Slight; Platelet Estimate Normal
[2020-02-03 06:10] LABS: Calcium 8.6 MG/DL (8.5-10.1); Osmolality,Calculated 263.7 MOS/KG (273-304)
[2020-02-03] MEDS: INSULIN LISPRO 100 UNIT/ML SUBCUT SCH ×4 (07:57→21:28)
[2020-02-03] MEDS: amLODIPine 5 MG TABLET PO SCH (08:36)
[2020-02-03] MEDS: ZINC SULFATE 220 MG CAPSULE PO SCH (08:36)
[2020-02-03] MEDS: AZITHROMYCIN 250 MG TABLET PO SCH (08:36)
[2020-02-03] MEDS: ENOXAPARIN 40 MG/0.4 ML SYRINGE SUBCUT SCH (08:38)
[2020-02-03] MEDS: carvediloL 12.5 MG TABLET PO SCH ×2 (08:38→21:05)
[2020-02-03] MEDS: cefTRIAXone 1,000 MG in SYRINGE 1 EACH IV SCH (09:47)
[2020-02-04] MEDS: ACETAMINOPHEN 500 MG TABLET PO PRN (03:45)
[2020-02-04 05:21] LABS: Eosinophils # 0.2 10*3/uL (0.0-0.87); Eosinophils % 5.5 % (0.00-10.9); Hematocrit 33.1 VOL% (42.0-52.0); Hemoglobin 10.2 GM/DL (14.0-18.0); Immature Granulocytes % 0.7 %; Immature Granulocytes Absolute 0.03 #; Lymphocytes % 22.4 % (21.2-54.2); Mean Corpuscular HGB Conc 30.8 GM/DL (32-36); Mean Corpuscular Volume 88.3 FL (87-102); Mean Platelet Volume 10.1 FL (9.6-12.0); Monocytes % 8.1 % (1.7-12.7); Neutrophils % 63.3 % (38.7-73.9); Platelet Count 258 T/CUMM (130-400); Red Blood Count 3.75 MC/CUMM (3.8-5.5); Red Cell Distribution Width 13.6 % (9.3-17.3); White Blood Count 4.3 T/CUMM (4-12)
[2020-02-04 05:44] LABS: Ferritin 511.8 ng/ml (26-388)
[2020-02-04 05:52] LABS: Calcium 8.6 MG/DL (8.5-10.1)
[2020-02-04 07:03] LABS: Band Neutrophils 1 % (0-10); Eosinophils 6 % (0-10); Hypochromasia Slight; Lymphocytes 19 % (20-55); Metamyelocytes 2 %; Nucleated Red Blood Cells 1 (0-5); Platelet Estimate Normal; Segmented Neutrophils 66 % (50-85); Total Cells Counted 100
[2020-02-04] MEDS: INSULIN LISPRO 100 UNIT/ML SUBCUT SCH ×4 (07:18→21:23)
[2020-02-04] MEDS: ZINC SULFATE 220 MG CAPSULE PO SCH ×2 (08:15→08:36)
[2020-02-04] MEDS: AZITHROMYCIN 250 MG TABLET PO SCH (08:15)
[2020-02-04] MEDS: ENOXAPARIN 40 MG/0.4 ML SYRINGE SUBCUT SCH (08:16)
[2020-02-04] MEDS: cefTRIAXone 1,000 MG in SYRINGE 1 EACH IV SCH (08:16)
[2020-02-04] MEDS: amLODIPine 5 MG TABLET PO SCH (08:16)
[2020-02-04] MEDS: carvediloL 12.5 MG TABLET PO SCH ×2 (08:16→21:23)
[2020-02-04] MEDS: GABAPENTIN 100 MG CAPSULE PO SCH ×2 (16:00→21:23)
[2020-02-04] MEDS: ZALEPLON 5 MG CAPSULE PO PRN (21:23)
[2020-02-05 05:38] LABS: Basophils % 0.2 % (0.0-0.8); Eosinophils # 0.3 10*3/uL (0.0-0.87); Eosinophils % 5.3 % (0.00-10.9); Hematocrit 34.9 VOL% (42.0-52.0); Hemoglobin 10.8 GM/DL (14.0-18.0); Immature Granulocytes % 0.9 %; Immature Granulocytes Absolute 0.05 #; Lymphocytes # 1.3 10*3/uL (1.4-4.0); Lymphocytes % 23.6 % (21.2-54.2); Mean Corpuscular HGB Conc 30.9 GM/DL (32-36); Mean Platelet Volume 10.1 FL (9.6-12.0); Monocytes % 7.7 % (1.7-12.7); Neutrophils % 62.3 % (38.7-73.9); Platelet Count 326 T/CUMM (130-400); Red Blood Count 4.01 MC/CUMM (3.8-5.5); Red Cell Distribution Width 13.5 % (9.3-17.3); White Blood Count 5.3 T/CUMM (4-12)
[2020-02-05 06:14] LABS: Ferritin 717.2 ng/ml (26-388)
[2020-02-05 06:37] LABS: Hypochromasia 1+; Microcytosis Slight; Platelet Estimate Normal
[2020-02-05 06:53] LABS: Calcium 8.9 MG/DL (8.5-10.1); Osmolality,Calculated 271.1 MOS/KG (273-304)
[2020-02-05] MEDS: AZITHROMYCIN 250 MG TABLET PO SCH (08:51)
[2020-02-05] MEDS: ZINC SULFATE 220 MG CAPSULE PO SCH (08:51)
[2020-02-05] MEDS: INSULIN LISPRO 100 UNIT/ML SUBCUT SCH ×2 (08:51→11:57)
[2020-02-05] MEDS: cefTRIAXone 1,000 MG in SYRINGE 1 EACH IV SCH (08:52)
[2020-02-05] MEDS: amLODIPine 5 MG TABLET PO SCH (08:52)
[2020-02-05] MEDS: ENOXAPARIN 40 MG/0.4 ML SYRINGE SUBCUT SCH (08:52)
[2020-02-05] MEDS: GABAPENTIN 100 MG CAPSULE PO SCH (08:52)
[2020-02-05] MEDS: carvediloL 12.5 MG TABLET PO SCH (08:52)
[2020-02-05 11:59] VITALS: BP 142/80
== END 2020-02-05 13:05 | disposition home or self-care (01) | DRG 177 ==
LOC: N.EDINP 09:28 → N.ED 09:28 → N.TELES 14:15 → SUATTDRO 02-01 10:43 → N.2E 02-01 19:24
PROVIDERS: ADMIT Internal Medicine; ATTEND Hospitalist